=== PATIENT | male | born 1960 | race Caucasian/White ===

== ENCOUNTER 2016-09-11 09:34 | Inpatient (IN) ==
--- NOTE | 2016-09-11 09:38 | Emergency Department Note ---
Disposition Clinical Impression: Atrial fibrillation with rapid ventricular response, Chest pain Disposition: Admitted As Inpatient Chest Pain HPI - General Stated Complaint: Chest Pain Time Seen by Provider: 09/11/16 09:37 Source: patient, family Mode of arrival: ambulatory Limitations: no limitations Vital Signs Reviewed: Yes Nursing Notes Reviewed: Yes - History of Present Illness Pt complaint: chest pain Onset (ago): week(s) (2) Duration: intermittent Onset: during rest Pain Location: substernal Severity: mild Quality: tightness Improves with: nothing Worsens with: nothing Associated symptoms: Reports: dyspnea Treatments prior to arrival chest pain: none - Related Data Previous Rx's Medication Instructions Recorded traMADol [Ultram] 50 mg PO Q6HR #20 tablet 12/18/15 Allergies Allergy/AdvReac Type Severity Reaction Status Date / Time No Known Allergies Allergy Verified 12/18/15 15:33 All systems ED: reviewed and negative except as stated. Constitutional: Denies: fever, chills Cardiovascular: Reports: chest pain, palpitations Respiratory: Reports: cough Gastrointestinal: Denies: nausea Chest Pain PMH - Past Medical History Medical history: Reports: arthritis, CHF, hypertension Psychiatric history: Reports: no psych history - Social History Smoking Status: Current every day smoker Alcohol use: Reports: heavy Drug use: Reports: none Physical Exam - General Limitations: no limitations General appearance: alert, in no apparent distress - Head Head exam: atraumatic, normocephalic, normal inspection - Eye Eye exam: Present: normal appearance, PERRL, EOMI - Expanded Eye Exam Pupils: Left: reactive - ENT ENT exam: normal exam, normal oropharynx, mucous membranes moist - Expanded ENT Exam External ear exam: Present: normal external inspection Mouth exam: Present: normal external inspection Teeth exam: Present: normal inspection Throat exam: Present: normal inspection - Neck Neck exam: Present: normal inspection, full ROM, trachea midline - Chest Chest inspection: Present: normal inspection, symmetric chest wall rise - Respiratory Respiratory exam: Present: normal lung sounds bilaterally - Cardiovascular Cardiovascular exam: Present: tachycardia, irregular rhythm - Abdominal Exam Abdominal exam: Present: soft, Non-Tender. Absent: tenderness, distention, guarding, rebound, rigidity - Extremities Exam Extremities exam: Present: normal inspection, full ROM. Absent: tenderness, pedal edema - Expanded Upper Extremity Exam Shoulder exam: Present: normal inspection, full ROM Arm exam: Present: normal inspection, full ROM Elbow exam: Present: normal inspection, full ROM Forearm/Wrist exam: Present: normal inspection, full ROM Hand exam: Present: normal inspection, full ROM Vascular exam: Normal: capillary refill, radial pulse - Expanded Lower Extremity Exam Hip/Pelvis exam: Present: normal inspection, full ROM Upper leg exam: Present: normal inspection, full ROM Knee exam: Present: normal inspection, full ROM Lower leg exam: Present: normal inspection, full ROM Ankle exam: Present: normal inspection, full ROM Foot/toe exam: Present: normal inspection, full ROM Neurovascular/Tendon exam: Absent: motor deficit, sensory deficit, tendon deficit - Back Exam Back exam: Present: normal inspection, full ROM. Absent: tenderness - Neurological Exam Neurological exam: Present: alert, oriented X3 - Expanded Neurological Exam Patient oriented to: Present: person, place, time Coma Scale Eye Opening: Spontaneous Coma Scale Motor Response: Obeys Commands Coma Scale Verbal Response: Oriented Coma Scale Total: 15 - Psychiatric Psychiatric exam: Present: normal affect, normal mood - Skin Skin exam: Present: warm, dry, intact, normal color Course Vital Signs Temperature 97.5 F L 09/11/16 09:45 Pulse Rate 106 09/11/16 09:45 Respiratory Rate 18 09/11/16 09:45 Blood Pressure 125/108 09/11/16 09:45 O2 Sat by Pulse Oximetry 95 09/11/16 09:45 Temperature 97.5 F L 09/11/16 09:45 Pulse Rate 115 09/11/16 10:23 Respiratory Rate 20 09/11/16 10:23 Blood Pressure 126/96 09/11/16 10:23 O2 Sat by Pulse Oximetry 91 09/11/16 10:23 Oxygen Delivery Oxygen Delivery Room Air Chest Pain - Differential Diagnosis Likely: stable angina, unstable angina pectoris, atypical chest pain, st elevation myocardial infraction, chest pain - Medical Records Medical records reviewed: Yes I reviewed the patient's medical records. - Lab Data Lab results reviewed: Yes I reviewed the patient's lab results. Result diagrams: 09/11/16 09:45 09/11/16 09:45 Lab Results 09/11/16 09/11/16 09/11/16 Range/Units 09:45 09:45 09:45 WBC 5.2 (4.3-11.1) K/mcL RBC 4.92 (4.19-5.50) M/mcL Hgb 16.0 (12.9-16.9) g/dL Hct 46.7 (37.5-50.1) % MCV 94.9 (83.0-100.0) fL MCH 32.5 (28.0-33.3) pg MCHC 34.3 (31.6-35.5) g/dL RDW 13.8 (11.5-14.5) % Plt Count 138 L (140-400) K/mcL MPV 9.5 (9.4-12.4) fL Immature Gran % 0.2 (0-4) % Seg Neutrophils % 43.3 % Lymphocytes % 46.2 % Monocytes % 8.3 % Eosinophils % 1.2 % Basophils % 0.8 % Neutrophils # 2.3 (1.6-8.9) K/mcL Lymphocytes # 2.4 (0.6-4.6) K/mcL Monocytes # 0.4 (0.0-1.3) K/mcL Eosinophils # 0.1 (0.0-0.6) K/mcL Basophils # 0.0 (0.0-0.2) K/mcL PT 10.9 (9.4-12.1) Seconds INR 1.0 APTT 28.5 (26.0-36.0) Seconds Sodium 132 L (136-145) mEq/L Potassium 4.9 H (3.5-4.5) mEq/L Chloride 97 L (98-109) mEq/L Carbon Dioxide 22 (19-29) mEq/L BUN 8 (8-26) mg/dL Creatinine 0.82 (0.72-1.25) mg/dL Est GFR ( Amer) > 60 (> 60) Est GFR (Non-Af Amer) > 60 (> 60) BUN/Creatinine Ratio 10 (6-26) Glucose 87 (70-99) mg/dL Calculated Osmolality 272 L (280-300) Calcium 9.1 (8.6-10.8) mg/dL Troponin I (0-0.03) ng/mL 09/11/16 Range/Units 09:45 WBC (4.3-11.1) K/mcL RBC (4.19-5.50) M/mcL Hgb (12.9-16.9) g/dL Hct (37.5-50.1) % MCV (83.0-100.0) fL MCH (28.0-33.3) pg MCHC (31.6-35.5) g/dL RDW (11.5-14.5) % Plt Count (140-400) K/mcL MPV (9.4-12.4) fL Immature Gran % (0-4) % Seg Neutrophils % % Lymphocytes % % Monocytes % % Eosinophils % % Basophils % % Neutrophils # (1.6-8.9) K/mcL Lymphocytes # (0.6-4.6) K/mcL Monocytes # (0.0-1.3) K/mcL Eosinophils # (0.0-0.6) K/mcL Basophils # (0.0-0.2) K/mcL PT (9.4-12.1) Seconds INR APTT (26.0-36.0) Seconds Sodium (136-145) mEq/L Potassium (3.5-4.5) mEq/L Chloride (98-109) mEq/L Carbon Dioxide (19-29) mEq/L BUN (8-26) mg/dL Creatinine (0.72-1.25) mg/dL Est GFR ( Amer) (> 60) Est GFR (Non-Af Amer) (> 60) BUN/Creatinine Ratio (6-26) Glucose (70-99) mg/dL Calculated Osmolality (280-300) Calcium (8.6-10.8) mg/dL Troponin I 0.00 (0-0.03) ng/mL - Radiology Data Radiology results reviewed: Yes I reviewed the patient's radiology results. - EKG Data EKG attestation: Yes I reviewed and interpreted this EKG. Rate: tachycardia Rhythm: A.Fib [place]/QRS: normal Interpretation: nonspecific ST-T wave changes Critical Care Time Critical Care Time: Yes Total Critical Care Time: 35 Attestation: Critical care performed: Time is exclusive of separately billable procedures. Time includes: direct patient care, patient reassessment, coordination of patient care, interpretation of data (laboratory data, radiology data, and respiratory data), review of patient's medical records, medical consultation and documentation of patient care. Procedures included in critical care time: Procedures excluded from critical care time:
[2016-09-11 09:55] LABS: Basophils % 0.8 %; Eosinophils # 0.1 K/mcL (0.0-0.6); Eosinophils % 1.2 %; Hematocrit 46.7 % (37.5-50.1); Immature Granulocytes % 0.2 % (0-4); Lymphocytes # 2.4 K/mcL (0.6-4.6); Lymphocytes % 46.2 %; Mean Corpuscular HGB Conc 34.3 g/dL (31.6-35.5); Mean Corpuscular Hemoglobin 32.5 pg (28.0-33.3); Mean Corpuscular Volume 94.9 fL (83.0-100.0); Mean Platelet Volume 9.5 fL (9.4-12.4); Monocytes # 0.4 K/mcL (0.0-1.3); Monocytes % 8.3 %; Neutrophils # 2.3 K/mcL (1.6-8.9); Platelet Count 138 K/mcL (140-400); Red Blood Count 4.92 M/mcL (4.19-5.50); Red Cell Distribution Width 13.8 % (11.5-14.5); Segmented Neutrophils % 43.3 %
[2016-09-11] MEDS ORDERED: 0.9 % Sodium Chloride 500 ML IVC ONE (09:57)
[2016-09-11 10:03] LABS: Prothrombin Time 10.9 Seconds (9.4-12.1)
[2016-09-11 10:06] LABS: Activated Partial Thrombo Time 28.5 Seconds (26.0-36.0)
[2016-09-11 10:12] LABS: BUN/Creatinine Ratio 10 (6-26); Blood Urea Nitrogen 8 mg/dL (8-26); Calcium 9.1 mg/dL (8.6-10.8); Carbon Dioxide 22 mEq/L (19-29); Chloride 97 mEq/L (98-109); Glucose 87 mg/dL (70-99); Osmolality,Calculated 272 (280-300); Potassium 4.9 mEq/L (3.5-4.5); Sodium 132 mEq/L (136-145); eGFR For African Americans > 60 (> 60); eGFR For Non-African Americans > 60 (> 60)
[2016-09-11] MEDS ORDERED: Aspirin 81 MG TAB.CHEW PO ONE (10:24)
[2016-09-11] MEDS ORDERED: *HR* Enoxaparin 80 MG/0.8 ML SYRINGE SQ STA (10:24)
[2016-09-11] MEDS ORDERED: 0.9 % Sodium Chloride 500 ML ONE (10:31)
[2016-09-11] MEDS ORDERED: Calcium Gluconate 1,000 MG in D5% in Water 100 ML IVPB ONE (12:43)
[2016-09-11] MEDS ORDERED: Naloxone 0.4 MG/ML INJ IVP PRN (12:59)
[2016-09-11] MEDS ORDERED: *HR* LORazepam 2 MG/ML VIAL IVP PRN ×3 (13:03)
[2016-09-11] MEDS ORDERED: *HR* Promethazine 25 MG/ML VIAL IVP PRN (13:03)
--- NOTE | 2016-09-11 13:14 | Electrocardiograph Report ---
[place] [id number] Test Date: 2016-09-11 Pat Name: Denzel Thorpe Department: 102 Room: 2A12 Gender: M [employer] Developer: : 1960 Requested By: Moises Duenas Order Number: [id number] Reading MD: Denzel Marie MD Measurements Intervals [place] Rate: 118 P: HI: 0 QRS: 70 QRSD: 93 T: 67 QT: 314 QTc: 384 Interpretive Statements ATRIAL FIBRILLATION WITH RAPID VENTRICULAR RESPONSE Electronically Signed On 09-11-2016 13:12:32 EDT by Denzel Marie MD
[2016-09-11] MEDS ORDERED: Albuterol 2.5 MG/3 ML NEBULIZER IH PRN (13:18)
--- NOTE | 2016-09-11 13:36 | Internal Med History&Physical ---
Date of Encounter: 09/11/16 Time of Encounter: 13:32 Assessment and Plan (1) Atrial fibrillation with rapid ventricular response Current visit: Yes Status: Acute Patient presented with chest pain. EKG showed Afib with RVR, HR 118. Previous EKG on record from 11/2015 also shows Afib. Patient a poor historian and reports he moved recently and he's run out of most of his medications. 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 Cardizem drip to maintain HR < 100 for rate/rhythm control Weight based lovenox for anti-coagulation Obtain records from [place] and will restart patient on home regimen once records available. CT of head given uncontrolled and not anti-coagulated and with right hand weakness. (2) Chest pain Current visit: Yes Status: Acute Patient reports chest pain on and off for the last several days. EKG shows AFib with RVR, no ST elevations. Troponin negative at 0.00. Chest pain likely due to Afib, will rule out ACS. Continuous monitoring engineer serial troponins. Qualifiers: Chest pain type: precordial pain Qualified Code(s): R07.2 - Precordial pain (3) Wheeze Current visit: Yes Status: Acute Patient with diffuse wheezes bilaterally. He reports shortness of breath "no worse than usual". He is unaware of a COPD diagnosis, but given longstanding smoking history, it is likely. CXR shows no acute process. Budesonide/formotorol BID xopenex QID Prednisone 40mg Daily. (4) Smoker Current visit: Yes Status: Acute Discussed smoking cessation, patient not ready to quit. Smoking cessation education ordered. Nicotine patch. (5) Alcohol abuse Current visit: Yes Status: Acute Patient reports he drinks 48oz of beer daily. CIWA protocol ordered. SWK consulted. (6) DVT prophylaxis Current visit: Yes Status: Acute Up to chair BID anti-embolic stockings Weight based lovenox ordered for afib anticoagulation. Internal Medicine - H&P: HPI Chief complaint: chest pain Admitted From: Emergency Dept Plans for Post Hospital Care: Home History of present illness: Mr. Thorpe is a 56 year old male with hypertension, CHF, atrial fibrillation, arthritis presented to the emergency department today with complaints of chest pain. Patient reports the pain as been coming on and off for the last few days , describes it as, "just hurts", and is attributing it to stress. He recently moved from [place], and has run out of his medication. He is a poor historian and instructed us to get records from [place] for more of his history and medication list. He denies any headache, lightheadedness, palpitations, nausea , vomiting, abdominal pain, fever, chills, sweats. He does report occasional palpitations but, "no more than usual", as well as shortness of breath again " no more than usual". Evaluation in the emergency department included an EKG which showed he was in atrial fibrillation with RVR heart rate of 118. Chest x- ray showed no acute cardiopulmonary process. White blood cell count was normal at 5.2. He is mildly hyponatremic with sodium of 132. Troponin was negative at 0.00. He was started on a Cardizem drip for his atrial fibrillation and given weight-based Lovenox for anticoagulation. On exam, patient is alert and oriented, in no acute distress, denies any current chest pain. Lungs have bilateral wheezes and rhonchi. Patient reports he is a smoker and has a chronic cough. Heart has a regular rhythm, his rate controlled in the 90s. Past Med Surg Social Fam HX - Past Medical History Medical history: arthritis, atrial fibrillation, CHF, hypertension Psychiatric history: no psych history - Past Surgical History Surgical History: no surgical history - Social History Smoking Status: Current every day smoker Smokeless Tobacco Status: No Alcohol use: heavy Drug use: none - Family History Mother Living Status: Age at : 60 Father Living Status: Age at : 98 Internal Medicine - H&P: Meds Meloxicam [Mobic] 15 mg PO DAILY 09/11/16 [History] Allergies No Known Allergies Allergy (Verified 09/11/16 14:36) All Systems PM: A 10-system review of systems was performed and is negative for pertinent findings except as documented above in the HPI. - Constitutional Constitutional: no chills, no fever(s), no night sweats - EENT Eyes: no change in vision, no discharge, no pain, no photophobia Ears: no ear discharge, no ear pain, no tinnitus Nose, mouth and throat: no dysphagia, no nasal discharge, no neck pain, no sore throat - Cardiovascular Cardiovascular ROS IM: chest pain, dyspnea, palpitations, no diaphoresis, no lightheadedness, no syncope - Respiratory Respiratory: cough (chronic), dyspnea (no more than usual), no wheezing, no excessive phlegm production - Gastrointestinal Gastrointestinal: no abdominal pain, no diarrhea, no hematemesis, no hematochezia, no melena, no nausea, no vomiting - Musculoskeletal Musculoskeletal ROS IM: no numbness, no tingling - Integumentary Integumentary IM: no rash, no unusual bruising - Neurological Neurological ROS: no confusion, no convulsions, no focal weakness, no numbness, no tingling, no tremor(s) - Hematologic/Lymphatic Hematologic/Lymphatic: no easy bruising - Constitutional Vitals: Temp Pulse Resp BP Pulse Ox 98.3 F 106 14 128/86 95 09/11/16 12:06 09/11/16 12:06 09/11/16 12:06 09/11/16 12:06 09/11/16 12:06 General appearance: Present: A&O X 3, pleasant, no acute distress - Head Head exam: Present: atraumatic, normocephalic - Eye Eye exam: Present: PERRL, conjuntiva pink, sclera anicteric Pupils: Present: PERRL - Neck Neck exam general surgery: Present: supple, trachea midline. Absent: lymphadenopathy - Respiratory Respiratory exam: Present: rhonchi, wheezes. Absent: accessory muscle use, rales - Cardiovascular Cardiovascular exam: Present: irregular rhythm, +S1, +S2. Absent: diastolic murmur, gallop, rubs, systolic murmur - GI/Abdominal GI/Abdominal exam: Present: normal bowel sounds, soft, no peritoneal signs. Absent: distended, tenderness - Extremities Exam Extremities exam: Present: warm, radial pulses palpable and symetrical. Absent : calf tenderness, cyanotic, pedal edema - Neurological Exam Neurological exam: Present: CN II-XII intact, oriented X3, no focal deficits. Absent: pronater drift, facial droop, speech deficit - Skin Skin exam: Present: dry, intact Internal Med - H&P Results - Labs CBC & Chem 7: 09/11/16 09:45 09/11/16 16:00 Labs: All Lab Results (24 Hours) 09/11/16 09/11/16 09/11/16 Range/Units 09:45 09:45 09:45 WBC 5.2 (4.3-11.1) K/mcL RBC 4.92 (4.19-5.50) M/mcL Hgb 16.0 (12.9-16.9) g/dL Hct 46.7 (37.5-50.1) % MCV 94.9 (83.0-100.0) fL MCH 32.5 (28.0-33.3) pg MCHC 34.3 (31.6-35.5) g/dL RDW 13.8 (11.5-14.5) % Plt Count 138 L (140-400) K/mcL MPV 9.5 (9.4-12.4) fL Immature Gran % 0.2 (0-4) % Seg Neutrophils % 43.3 % Lymphocytes % 46.2 % Monocytes % 8.3 % Eosinophils % 1.2 % Basophils % 0.8 % Neutrophils # 2.3 (1.6-8.9) K/mcL Lymphocytes # 2.4 (0.6-4.6) K/mcL Monocytes # 0.4 (0.0-1.3) K/mcL Eosinophils # 0.1 (0.0-0.6) K/mcL Basophils # 0.0 (0.0-0.2) K/mcL PT 10.9 (9.4-12.1) Seconds INR 1.0 APTT 28.5 (26.0-36.0) Seconds Sodium 132 L (136-145) mEq/L Potassium 4.9 H (3.5-4.5) mEq/L Chloride 97 L (98-109) mEq/L Carbon Dioxide 22 (19-29) mEq/L BUN 8 (8-26) mg/dL Creatinine 0.82 (0.72-1.25) mg/dL Est GFR ( Amer) > 60 (> 60) Est GFR (Non-Af Amer) > 60 (> 60) BUN/Creatinine Ratio 10 (6-26) Glucose 87 (70-99) mg/dL Calculated Osmolality 272 L (280-300) Calcium 9.1 (8.6-10.8) mg/dL Troponin I (0-0.03) ng/mL 09/11/16 Range/Units 09:45 WBC (4.3-11.1) K/mcL RBC (4.19-5.50) M/mcL Hgb (12.9-16.9) g/dL Hct (37.5-50.1) % MCV (83.0-100.0) fL MCH (28.0-33.3) pg MCHC (31.6-35.5) g/dL RDW (11.5-14.5) % Plt Count (140-400) K/mcL MPV (9.4-12.4) fL Immature Gran % (0-4) % Seg Neutrophils % % Lymphocytes % % Monocytes % % Eosinophils % % Basophils % % Neutrophils # (1.6-8.9) K/mcL Lymphocytes # (0.6-4.6) K/mcL Monocytes # (0.0-1.3) K/mcL Eosinophils # (0.0-0.6) K/mcL Basophils # (0.0-0.2) K/mcL PT (9.4-12.1) Seconds INR APTT (26.0-36.0) Seconds Sodium (136-145) mEq/L Potassium (3.5-4.5) mEq/L Chloride (98-109) mEq/L Carbon Dioxide (19-29) mEq/L BUN (8-26) mg/dL Creatinine (0.72-1.25) mg/dL Est GFR ( Amer) (> 60) Est GFR (Non-Af Amer) (> 60) BUN/Creatinine Ratio (6-26) Glucose (70-99) mg/dL Calculated Osmolality (280-300) Calcium (8.6-10.8) mg/dL Troponin I 0.00 (0-0.03) ng/mL - Diagnostic Studies Chest x-ray Additional comments: Chest X-Ray 09/11/16 09:37 IMPRESSION: 1. No acute cardiopulmonary disease. 2. Stable right basilar pleural and parenchymal scarring. 3. Stable cardiomegaly. D/ / 09/11/2016 10:49:23 Salomon Mccarthy MD / fco Interpreting Provider: Salomon Mccarthy MD
--- NOTE | 2016-09-11 13:52 | Event Note ---
Date of Encounter: 09/11/16 Time of Encounter: 13:49 Patient seen and examined with nurse practitioner. Patient presents with man complaining of shortness of breath and chest pain. He is in AFib with rapid ventricular response. He is not compliant with any of his medications. He is not taking his rate control and or anticoagulants. He has moved from [place] and since then he has not followed with his PCP for the past few months. He has been started on Cardizem for rate control is on minimal dose of 5 mg per hour and systolic blood pressure is running in the 120s will continue. Gentle hydration. For dose Lovenox. We will get records from [facility]. Patient is also having acute bronchitis. He is a lifelong smoker does not know if he has COPD or not. We will give oral steroids and nebulizer treatments with Xopenex. He has right arm weakness which has been there for the past 2 months. Maybe shoulder pathology because of pain with range of motion versus CVA. He is a very poor historian. We will get CT scan of the head. She is also an alcoholic. We will keep on serial protocol with oral ativan. He is full code.
[2016-09-11] MEDS ORDERED: *HR* LORazepam 1 MG TABLET PO PRN ×3 (13:56→13:59)
[2016-09-11] MEDS: Nicotine 21 MG PATCH.TD24 TD SCH (14:35)
[2016-09-11] MEDS: predniSONE 20 MG TABLET PO SCH (14:40)
[2016-09-11] MEDS: Levalbuterol Neb 1.25 MG/3 ML IH SCH ×2 (15:13→20:43)
[2016-09-11 16:34] LABS: Magnesium 1.6 mg/dL (1.6-2.6)
[2016-09-11] MEDS ORDERED: Ipratropium/Albuterol Neb 3 ML IH SCH (17:00)
[2016-09-11] MEDS: Acetaminophen 325 MG TABLET PO PRN (19:45)
[2016-09-11] MEDS: Budesonide/Formoterol 160/4.5 MDI IH SCH (20:43)
[2016-09-11] MEDS: *HR* Enoxaparin 80 MG/0.8 ML SYRINGE SQ SCH (21:18)
[2016-09-12] MEDS: Levalbuterol Neb 1.25 MG/3 ML IH SCH ×2 (04:13→09:53)
[2016-09-12 04:46] LABS: Basophils % 0.1 %; Hematocrit 42.4 % (37.5-50.1); Immature Granulocytes % 0.4 % (0-4); Lymphocytes # 1.2 K/mcL (0.6-4.6); Lymphocytes % 17.6 %; Mean Corpuscular Hemoglobin 32.4 pg (28.0-33.3); Mean Corpuscular Volume 95.5 fL (83.0-100.0); Mean Platelet Volume 10.2 fL (9.4-12.4); Monocytes # 0.4 K/mcL (0.0-1.3); Monocytes % 6.5 %; Neutrophils # 5.1 K/mcL (1.6-8.9); Platelet Count 119 K/mcL (140-400); Red Blood Count 4.44 M/mcL (4.19-5.50); Red Cell Distribution Width 13.6 % (11.5-14.5); Segmented Neutrophils % 75.4 %
[2016-09-12 04:55] LABS: Hemoglobin 14.4 g/dL (12.9-16.9)
[2016-09-12 05:00] LABS: BUN/Creatinine Ratio 14 (6-26); Blood Urea Nitrogen 12 mg/dL (8-26); Carbon Dioxide 27 mEq/L (19-29); Chloride 100 mEq/L (98-109); Glucose 153 mg/dL (70-99); Osmolality,Calculated 279 (280-300); Potassium 4.3 mEq/L (3.5-4.5); Sodium 133 mEq/L (136-145); eGFR For African Americans > 60 (> 60); eGFR For Non-African Americans > 60 (> 60)
[2016-09-12] MEDS: *HR* Enoxaparin 80 MG/0.8 ML SYRINGE SQ SCH (08:07)
[2016-09-12] MEDS: predniSONE 20 MG TABLET PO SCH (08:07)
[2016-09-12] MEDS: Nicotine 21 MG PATCH.TD24 TD SCH (08:07)
--- NOTE | 2016-09-12 08:32 | Cardiology Consult Note ---
Date of Encounter: 09/12/16 Time of Encounter: 08:30 Assessment and Plan (1) Atrial fibrillation with rapid ventricular response Current Visit: Yes Status: Acute Per Cardiology: Hx of afib on ECG in 2016. Patient confirmed awareness to history of atrial fibrillation, of note however patient is a very poor historian. Recently ran out of meds. On IV Cardizem gtt. 2.5mg. Willl add Cardizem 30mg PO every 6 hrs. SBP 120's. Will attempt to wean off gtt. Mg & TSH ok. Regarding long-term AC, patient appears to have [id number] = 1 (HTN?). At this point recommend aspirin only for long-term anticoagulation due to frequent falls , heavy alcohol use, medical noncompliance. Patient verbalized understanding. No family present at bedside for further discussion. (2) Chest pain Current Visit: Yes Status: Acute Per Cardiology: Trops 0.00 x 3. CP in setting of afib RVR while off meds. Symptoms atypical suspect related to A. fib with RVR. Awaiting medical records from [place]. Can consider echocardiogram once better rate controlled if not recently completed at outside facility. Qualifiers: Chest pain type: precordial pain Qualified Code(s): R07.2 - Precordial pain (3) Alcohol abuse Current Visit: Yes Status: Acute Per Cardiology: Patient reports he drinks at least 48oz of beer daily. On CIWA protocol. Discussion w patient/family: The assessment and plan as outlined above was discussed with the patient who expressed understanding and agreement. All questions were answered. Thank you for involving us in the care of your patient. Please call with any questions. Has SW consult-- recent medical noncompliance, heavy ETOH use, recently moved to [facility], lives alone, illiterate. History of Present Illness Consult date: 09/12/16 Requesting physician: Gordon España Consult reason: Afib RVR Chief complaint: Chest Thumping History of present illness: Mr. Thorpe is a 56 year old male with a relevant past medical history of arthritis, atrial fibrillation, CHF, hypertension, alcohol abuse, nicotine abuse. Cardiology consult for chest pain and atrial fibrillation with rapid ventricular response. Patient reports he presented due to concerns of midsternal chest thumping sensations that started at home while in his yard watching his dog. He reports symptoms improved with sitting down. He denies any current symptoms. He does report shortness of breath at time of this event. 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 Patient aware that he is taking Lasix 20 mg by mouth daily and did not run out of that medication. However, unfortunately not aware of his other medications and reports has remount about a week and a half ago. He reports recent heart workup at [place] late last year. Patient unaware of what testing was completed. Patient does admit to past knowledge of history of atrial fibrillation. Denies awareness of taking any blood thinner. He denies any active bleeding or blood loss. He does report frequent falls and has fallen 4-5 times in the past 6 months. Patient admits to drinking at least 3 beers daily since hospital stay. He does admit to drinking at least a case per day prior to recent hospitalization. Patient could not provide specifics on volume or his length of alcohol use other than "I would drink whatsoever I couldn't get my hands on" and had been drinking since before age 19. He does admit to smoking about one half packs per day, again noncommittal on length of time. He denies any illicit drug use. He denies any awareness to past history of CAD or CVA. Patient reports illiteracy. Recently moved to the area and indicates lives next door to his brother. Past Med Surg Social Fam HX - Past Medical History Attestation: Yes The following information was validated with the patient. Source: patient, old records reviewed Medical history: arthritis, atrial fibrillation, CHF, hypertension Psychiatric history: no psych history - Past Surgical History Surgical History: no surgical history - Social History Smoking Status: Current every day smoker Smokeless Tobacco Status: No Alcohol use: heavy Drug use: none - Family History Mother Living Status: Age at : 60 Father Living Status: Age at : 98 Medications and Allergies Meloxicam [Mobic] 15 mg PO DAILY 09/11/16 [History] Allergies No Known Allergies Allergy (Verified 09/11/16 14:36) All Systems Review: A 10-system review of systems was performed and is negative for pertinent findings except as documented above in the HPI. - Cardiovascular Cardiovascular: as per HPI, chest pain at rest, dyspnea at rest, palpitations - Musculoskeletal Musculoskeletal: other (frequent falls) Physical Examination Vital Signs, Last 4 Hours Temp Pulse Resp BP Pulse Ox 09/12/16 08:22 92 09/12/16 07:33 98.2 F 79 16 125/82 92 General: Conversant, Other (Speech somewhat jumbled at times) HEENT: Atraumatic, Normocephaly Neck: No JVD Cardiac: No Murmur, Other (Irregularly irregular) Lungs: Normal Breath Sounds, No Wheeze, Rales, Rhonchi, Other (Slightly diminished basis) Neuro: Alert and responsive, No focal deficits noted, Other (Positive CHAPMAN 4) Abdomen: Soft, Non-Tender Skin: No rashes noted on visualized skin Musculoskeletal: No Chest Wall Tenderness Extremities: No Edema, Normal Pulses Results 09/12/16 04:21 09/12/16 04:21 Lab Results Laboratory Tests 09/11/16 09/11/16 09/11/16 09:45 09:45 16:00 INR 1.0 Magnesium Troponin I 0.00 0.00 09/11/16 09/11/16 16:00 22:04 INR Magnesium 1.6 Troponin I 0.00 Laboratory Tests 09/12/16 04:21 TSH 3.016 ITS Impressions Chest X-Ray 09/11/16 09:37 IMPRESSION: 1. No acute cardiopulmonary disease. 2. Stable right basilar pleural and parenchymal scarring. 3. Stable cardiomegaly. D/ / 09/11/2016 10:49:23 Salomon Mccarthy MD / fco Interpreting Provider: Salomon Mccarthy MD Head CT 09/11/16 14:30 IMPRESSION: No acute intracranial abnormality. D/ / 09/11/2016 15:52:34 Chelly Tian MD / [place] Interpreting Provider: Chelly Tian MD Active Medications Acetaminophen (Tylenol) 650 mg PO Q6HR PRN PRN Reason: Mild Pain (1-3) Stop: 03/13/17 13:00 Last Admin: 09/11/16 19:45 Dose: 650 mg Budesonide/Formoterol Fumarate (Symbicort) 2 puff IH BIDR [facility] Stop: 03/13/17 22:01 Last Admin: 09/11/16 20:43 Dose: 2 puff Docusate Sodium (Colace) 100 mg PO BID PRN PRN Reason: Constipation Stop: 03/13/17 13:00 Enoxaparin Sodium (Lovenox) 80 mg 1 mg/kg (80 mg) SQ Q12H LINDA PRN Reason: Protocol Stop: 03/13/17 22:01 Last Admin: 09/12/16 08:07 Dose: 80 mg Diltiazem HCl 125 mg/ Dextrose 125 mls @ 5 mls/hr IVC .Q24H LINDA; 5 MG/HR PRN Reason: Protocol Stop: 03/13/17 16:46 Last Titration: 09/12/16 08:05 Dose: 2.5 mg/hr, 2.5 mls/hr Levalbuterol HCl (Xopenex) 1.25 mg IH [id number] [facility] Stop: 03/13/17 16:01 Last Admin: 09/12/16 04:13 Dose: 1.25 mg Lorazepam (Ativan) 2 mg PO Q4H PRN PRN Reason: Alcohol Withdrawal Stop: 03/13/17 13:57 Lorazepam (Ativan) 1 mg PO Q1H PRN PRN Reason: Alcohol Withdrawal Stop: 03/13/17 13:59 Lorazepam (Ativan) 4 mg PO Q4HR PRN PRN Reason: Alcohol Withdrawal Stop: 03/13/17 14:00 Naloxone HCl (Narcan) 0.4 mg IVP Q2MIN PRN PRN Reason: Opioid Reversal Stop: 03/13/17 13:00 Nicotine (Nicoderm) 21 mg TD DAILY [facility] Stop: 03/13/17 13:16 Last Admin: 09/12/16 08:07 Dose: 21 mg Prednisone (Prednisone) 40 mg PO DAILY [facility] Stop: 03/13/17 14:01 Last Admin: 09/12/16 08:07 Dose: 40 mg Promethazine HCl (Phenergan) 12.5 mg IVP Q4HR PRN PRN Reason: Nausea And Vomiting Stop: 03/13/17 13:04 - Imaging and Cardiology Chest Xray: report reviewed - EKG Interpretation EKG results cardiology: personally reviewed (Atrial fibrillation with rapid ventricular response in the 110s), other (24-hour telemetry reviewed with average heart rate 86, atrial fibrillation, longest pause 2.3 seconds, currently A. fib on telemetry in the 100s) Consult Discharge Plan - Plan Referrals: NO,PCP [Primary Care Provider] -
[2016-09-12 09:18] LABS: Thyroid Stimulating Hormone 3.016 mcIU/mL (0.350-4.840)
[2016-09-12] MEDS: Budesonide/Formoterol 160/4.5 MDI IH SCH ×2 (09:53→19:40)
[2016-09-12] MEDS ORDERED: Levalbuterol Neb 1.25 MG/3 ML IH PRN (12:30)
[2016-09-12] MEDS: Folic Acid 1 MG TABLET PO SCH (12:47)
[2016-09-12] MEDS: Thiamine (B-1) 100 MG TABLET PO SCH (12:47)
--- NOTE | 2016-09-12 14:45 | Internal Med Progress Note ---
Date of Encounter: 09/12/16 Time of Encounter: 10:30 - Assessment and plan (1) Atrial fibrillation with rapid ventricular response Current Visit: Yes Status: Acute Assessment and plan: Patient with history of atrial fibrillation admitted with rapid ventricular response, initially on Cardizem drip. Plan is to transition to by mouth Cardizem, we will follow recommendations by cardiology. Patient with poor adherence to medical therapy, chronic alcoholic, thrombocytopenia and risk of falls, at this point recommendation would be to give only aspirin for CVA prophylaxis. Discussed with patient, he expressed understanding. Cardiology input highly appreciated. (2) Alcohol abuse Current Visit: Yes Status: Acute Assessment and plan: Continue with CIWA protocol. Continue monitoring. (3) DVT prophylaxis Current Visit: Yes Status: Acute Assessment and plan: Continue with heparin. (4) Smoker Current Visit: Yes Status: Acute - Subjective Interval history: Patient seen and examined in rounds. Patient denies chest pain, shortness of breath. He is a chronic alcoholic. - Constitutional Vitals: Temp Pulse Resp BP Pulse Ox 98.2 F 79 16 125/82 92 09/12/16 07:33 09/12/16 07:33 09/12/16 09:54 09/12/16 07:33 09/12/16 09:54 General appearance: Present: A&O X 3, pleasant, no acute distress - Head Head exam: Present: atraumatic, normocephalic - Eye Eye exam: Present: PERRL, conjuntiva pink, sclera anicteric Pupils: Present: PERRL - Neck Neck exam general surgery: Present: supple, trachea midline. Absent: lymphadenopathy - Respiratory Respiratory exam: Present: CTAB. Absent: accessory muscle use, rales, rhonchi, wheezes - Cardiovascular Cardiovascular exam: Present: RRR, +S1, +S2. Absent: diastolic murmur, gallop, rubs, systolic murmur - GI/Abdominal GI/Abdominal exam: Present: normal bowel sounds, soft, no peritoneal signs. Absent: distended, tenderness - Extremities Exam Extremities exam: Present: warm, radial pulses palpable and symetrical. Absent : calf tenderness, cyanotic, pedal edema - Neurological Exam Neurological exam: Present: CN II-XII intact, oriented X3, no focal deficits. Absent: pronater drift, facial droop, speech deficit - Skin Skin exam: Present: dry, intact Internal Medicine: Result - Labs CBC & Chem 7: 09/12/16 04:21 09/12/16 04:21 Labs: Short CBC 09/12/16 Range/Units 04:21 WBC 6.8 (4.3-11.1) K/mcL Hgb 14.4 D (12.9-16.9) g/dL Hct 42.4 (37.5-50.1) % Plt Count 119 L (140-400) K/mcL Neutrophils # 5.1 (1.6-8.9) K/mcL BMP 09/12/16 04:21 Sodium 133 L Potassium 4.3 Chloride 100 Carbon Dioxide 27 BUN 12 Creatinine 0.86 Glucose 153 H Calcium 9.0 Cardiac Enzymes 09/11/16 Range/Units 22:04 Troponin I 0.00 (0-0.03) ng/mL - ABG Interpretation ABG results: PT/INR, D-dimer PT 10.9 Seconds (9.4-12.1) 09/11/16 09:45 Consult Discharge Plan - Plan Referrals: NO,PCP [Primary Care Provider] -
[2016-09-12] MEDS: Diltiazem CD (24hr) 120 MG CAPSULE PO SCH (15:37)
[2016-09-12] MEDS: Magnesium Oxide 400 MG TABLET PO SCH (20:18)
[2016-09-13 03:55] LABS: Prothrombin Time 11.1 Seconds (9.4-12.1)
[2016-09-13] MEDS: *HR* Enoxaparin 40 MG/0.4 ML SYRINGE SQ SCH (04:58)
[2016-09-13 05:20] LABS: Basophils % 0.2 %; Eosinophils % 0.4 %; Hematocrit 39.7 % (37.5-50.1); Hemoglobin 13.4 g/dL (12.9-16.9); Immature Granulocytes % 0.6 % (0-4); Lymphocytes # 1.2 K/mcL (0.6-4.6); Lymphocytes % 22.1 %; Mean Corpuscular HGB Conc 33.8 g/dL (31.6-35.5); Mean Corpuscular Hemoglobin 32.8 pg (28.0-33.3); Mean Corpuscular Volume 97.3 fL (83.0-100.0); Mean Platelet Volume 10.2 fL (9.4-12.4); Monocytes # 0.3 K/mcL (0.0-1.3); Monocytes % 5.9 %; Neutrophils # 3.9 K/mcL (1.6-8.9); Platelet Count 103 K/mcL (140-400); Red Blood Count 4.08 M/mcL (4.19-5.50); Red Cell Distribution Width 14.1 % (11.5-14.5); Segmented Neutrophils % 70.8 %
[2016-09-13 05:30] LABS: BUN/Creatinine Ratio 15 (6-26); Blood Urea Nitrogen 13 mg/dL (8-26); Calcium 8.8 mg/dL (8.6-10.8); Carbon Dioxide 24 mEq/L (19-29); Chloride 101 mEq/L (98-109); Glucose 117 mg/dL (70-99); Osmolality,Calculated 279 (280-300); Potassium 4.6 mEq/L (3.5-4.5); Sodium 134 mEq/L (136-145); eGFR For African Americans > 60 (> 60); eGFR For Non-African Americans > 60 (> 60)
[2016-09-13] MEDS: Budesonide/Formoterol 160/4.5 MDI IH SCH ×2 (08:09→20:03)
[2016-09-13] MEDS: Magnesium Oxide 400 MG TABLET PO SCH ×2 (08:39→20:18)
[2016-09-13] MEDS: Nicotine 21 MG PATCH.TD24 TD SCH (08:39)
[2016-09-13] MEDS: Thiamine (B-1) 100 MG TABLET PO SCH (08:39)
[2016-09-13] MEDS: Aspirin Enteric Coated 81 MG Tablet PO SCH (08:39)
[2016-09-13] MEDS: Folic Acid 1 MG TABLET PO SCH (08:39)
[2016-09-13] MEDS: Diltiazem CD (24hr) 120 MG CAPSULE PO SCH (08:39)
[2016-09-13] MEDS ORDERED: Diltiazem CD (24hr) 120 MG CAPSULE PO ONE (09:02)
--- NOTE | 2016-09-13 09:05 | Cardiology Progress Note ---
Date of Encounter: 09/13/16 Time of Encounter: 09:00 Assessment and Plan (1) Atrial fibrillation with rapid ventricular response Current Visit: Yes Status: Acute Per Cardiology: Hx of afib on ECG in 2016. Patient confirmed awareness to history of atrial fibrillation, of note however patient is a very poor historian. Recently ran out of meds. Remains A. fib with average heart rate past 12 hours 99 and currently 90s to 100s on telemetry. Now on Cardizem CD 120 mg by mouth daily with most recent SBP 130's - 150's. Will increase Cardizem CD up to 240 mg by mouth daily. Mg & TSH ok. No medical records received from outside facility. Now will proceed with echo since better rate controlled. Regarding long-term AC, patient appears to have [id number] = 1 (HTN?). At this point recommend aspirin only for long-term anticoagulation due to frequent falls , heavy alcohol use, medical noncompliance. Patient verbalized understanding. No family present at bedside for further discussion. Previously discussed with Dr. Prasad whom agrees. (2) Chest pain Current Visit: Yes Status: Acute Per Cardiology: Trops 0.00 x 3. CP in setting of afib RVR while off meds. Symptoms atypical suspect related to A. fib with RVR. Awaiting medical records from [place]. Will check echo. CP free. Qualifiers: Chest pain type: precordial pain Qualified Code(s): R07.2 - Precordial pain (3) Alcohol abuse Current Visit: Yes Status: Acute Per Cardiology: Patient reports he drinks at least 48oz of beer daily. On CIWA protocol. Alcohol cessation strongly encouraged. Monitor closely while on aspirin. Discussion w patient/family: The assessment and plan as outlined above was discussed with the patient who expressed understanding and agreement. All questions were answered. Thank you for involving us in the care of your patient. Please call with any questions. Has SW consult-- recent medical noncompliance, heavy ETOH use, recently moved to area, lives alone, illiterate. Subjective Principal diagnosis: Afib RVR Interval history: Patient denies any chest pain, shortness of breath, palpitations. Denies any active bleeding or blood loss. Inquiry into potential discharge home today. Objective Vital Signs, Last 4 Hours Temp Pulse Resp BP Pulse Ox 09/13/16 08:09 16 137/68 95 09/13/16 08:07 97.8 F 92 20 137/68 92 General: Conversant, No Apparent Distress HEENT: Atraumatic, Normocephaly Cardiac: No Murmur, Other (Irregularly irregular) Lungs: Normal Breath Sounds, No Wheeze, Rales, Rhonchi Neuro: Alert and responsive, No focal deficits noted Extremities: No Edema Results 09/13/16 03:30 09/13/16 03:30 Lab Results Active Medications Acetaminophen (Tylenol) 650 mg PO Q6HR PRN PRN Reason: Mild Pain (1-3) Stop: 03/13/17 13:00 Last Admin: 09/11/16 19:45 Dose: 650 mg Aspirin (Aspirin Ec) 81 mg PO DAILY [facility] Stop: 03/15/17 09:01 Last Admin: 09/13/16 08:39 Dose: 81 mg Budesonide/Formoterol Fumarate (Symbicort) 2 puff IH BIDR [facility] Stop: 03/13/17 22:01 Last Admin: 09/13/16 08:09 Dose: 2 puff Diltiazem HCl (Cardizem Cd) 120 mg PO ONCE ONE Stop: 09/13/16 09:03 Diltiazem HCl (Cardizem Cd) 240 mg PO DAILY [facility] Stop: 03/16/17 09:01 Docusate Sodium (Colace) 100 mg PO BID PRN PRN Reason: Constipation Stop: 03/13/17 13:00 Enoxaparin Sodium (Lovenox) 40 mg SQ 0600 LINDA PRN Reason: Protocol Stop: 03/15/17 06:01 Last Admin: 09/13/16 04:58 Dose: 40 mg Folic Acid (Folic Acid) 1 mg PO DAILY [facility] Stop: 03/14/17 12:30 Last Admin: 09/13/16 08:39 Dose: 1 mg Levalbuterol HCl (Xopenex) 1.25 mg IH [id number] PRN PRN Reason: Shortness Of Breath/Wheezing Stop: 03/13/17 16:01 Lorazepam (Ativan) 2 mg PO Q4H PRN PRN Reason: Alcohol Withdrawal Stop: 03/13/17 13:57 Lorazepam (Ativan) 1 mg PO Q1H PRN PRN Reason: Alcohol Withdrawal Stop: 03/13/17 13:59 Lorazepam (Ativan) 4 mg PO Q4HR PRN PRN Reason: Alcohol Withdrawal Stop: 03/13/17 14:00 Magnesium Oxide (Mag-Ox) 400 mg PO BID LINDA PRN Reason: Protocol Stop: 03/14/17 21:01 Last Admin: 09/13/16 08:39 Dose: 400 mg Naloxone HCl (Narcan) 0.4 mg IVP Q2MIN PRN PRN Reason: Opioid Reversal Stop: 03/13/17 13:00 Nicotine (Nicoderm) 21 mg TD DAILY [facility] Stop: 03/13/17 13:16 Last Admin: 09/13/16 08:39 Dose: 21 mg Thiamine HCl (Vitamin B-1) 100 mg PO DAILY [facility] Stop: 03/14/17 12:31 Last Admin: 09/13/16 08:39 Dose: 100 mg - Imaging and Cardiology Echo: pending - EKG Interpretation EKG results cardiology: other (Telemetry reviewed with average heart rate past 12 hours 99, remains atrial fibrillation, currently A. fib in the 90s to 100s.) Consult Discharge Plan - Plan Referrals: NO,PCP [Primary Care Provider] -
--- NOTE | 2016-09-13 14:31 | Internal Med Progress Note ---
Date of Encounter: 09/13/16 Time of Encounter: 11:00 - Assessment and plan (1) Atrial fibrillation with rapid ventricular response Current Visit: Yes Status: Acute Assessment and plan: Patient with history of atrial fibrillation admitted with rapid ventricular response, initially on Cardizem drip. on po Cardizem, we will follow recommendations by cardiology. Patient with poor adherence to medical therapy, chronic alcoholic, thrombocytopenia and risk of falls, at this point recommendation would be to give only aspirin for CVA prophylaxis. Discussed with patient, he expressed understanding. Pending echo, to evaluate systolic function. As per records he has a history of a severe systolic dysfunction. Cardiology input highly appreciated. (2) Alcohol abuse Current Visit: Yes Status: Acute (3) DVT prophylaxis Current Visit: Yes Status: Acute (4) Smoker Current Visit: Yes Status: Acute - Subjective Interval history: Patient seen and examined in rounds. Patient denies chest pain, shortness of breath. He is a chronic alcoholic. - Constitutional Vitals: Temp Pulse Resp BP Pulse Ox 97.8 F 92 16 137/68 95 09/13/16 08:07 09/13/16 08:07 09/13/16 08:09 09/13/16 08:09 09/13/16 08:09 General appearance: Present: A&O X 3, pleasant, no acute distress - Head Head exam: Present: atraumatic, normocephalic - Eye Eye exam: Present: PERRL, conjuntiva pink, sclera anicteric Pupils: Present: PERRL - Neck Neck exam general surgery: Present: supple, trachea midline. Absent: lymphadenopathy - Respiratory Respiratory exam: Present: CTAB. Absent: accessory muscle use, rales, rhonchi, wheezes - Cardiovascular Cardiovascular exam: Present: RRR, +S1, +S2. Absent: diastolic murmur, gallop, rubs, systolic murmur - GI/Abdominal GI/Abdominal exam: Present: normal bowel sounds, soft, no peritoneal signs. Absent: distended, tenderness - Extremities Exam Extremities exam: Present: warm, radial pulses palpable and symetrical. Absent : calf tenderness, cyanotic, pedal edema - Neurological Exam Neurological exam: Present: CN II-XII intact, oriented X3, no focal deficits. Absent: pronater drift, facial droop, speech deficit - Skin Skin exam: Present: dry, intact Internal Medicine: Result - Labs CBC & Chem 7: 09/13/16 03:30 09/13/16 03:30 Labs: Short CBC 09/13/16 Range/Units 03:30 WBC 5.4 (4.3-11.1) K/mcL Hgb 13.4 (12.9-16.9) g/dL Hct 39.7 (37.5-50.1) % Plt Count 103 L (140-400) K/mcL Neutrophils # 3.9 (1.6-8.9) K/mcL BMP 09/13/16 03:30 Sodium 134 L Potassium 4.6 H Chloride 101 Carbon Dioxide 24 BUN 13 Creatinine 0.86 Glucose 117 H Calcium 8.8 - ABG Interpretation ABG results: PT/INR, D-dimer PT 11.1 Seconds (9.4-12.1) 09/13/16 03:30 Consult Discharge Plan - Plan Referrals: NO,PCP [Primary Care Provider] -
--- NOTE | 2016-09-13 15:39 | Event Note ---
Date of Encounter: 09/13/16 Time of Encounter: 15:40 - Cardiology Event Note Echo still pending. We'll discontinue Cardizem and switch to Toprol-XL 100 mg by mouth daily since has previous history of known systolic CHF. Additionally, this does increase his [id number] risk, but unfortunately patient still remains poor candidate for long-term anticoagulation other than aspirin. I did have discussion with Dr. Marie regarding records at this juncture no plans for left heart catheterization. Again will await current echo for further recommendations and will monitor overnight for rate control and monitor with conversion to a different medication.
[2016-09-13] MEDS: Acetaminophen 325 MG TABLET PO PRN (20:18)
[2016-09-14 04:16] LABS: Eosinophils % 0.9 %; Mean Corpuscular Volume 98.6 fL (83.0-100.0)
[2016-09-14 04:17] LABS: Basophils % 0.7 %; Hematocrit 41.6 % (37.5-50.1); Hemoglobin 13.5 g/dL (12.9-16.9); Immature Granulocytes % 0.2 % (0-4); Immature Platelets 6.5 % (1.1-6.1); Lymphocytes # 1.5 K/mcL (0.6-4.6); Mean Corpuscular HGB Conc 32.5 g/dL (31.6-35.5); Mean Platelet Volume 9.9 fL (9.4-12.4); Monocytes # 0.3 K/mcL (0.0-1.3); Monocytes % 6.5 %; Platelet Count 111 K/mcL (140-400); Red Blood Count 4.22 M/mcL (4.19-5.50); Red Cell Distribution Width 14.3 % (11.5-14.5); Segmented Neutrophils % 57.7 %
[2016-09-14 04:21] LABS: Prothrombin Time 10.6 Seconds (9.4-12.1)
[2016-09-14 04:23] LABS: Neutrophils # 2.5 K/mcL (1.6-8.9)
[2016-09-14 04:32] LABS: BUN/Creatinine Ratio 15 (6-26); Blood Urea Nitrogen 15 mg/dL (8-26); Carbon Dioxide 26 mEq/L (19-29); Chloride 101 mEq/L (98-109); Glucose 91 mg/dL (70-99); Osmolality,Calculated 280 (280-300); Potassium 5.1 mEq/L (3.5-4.5); Sodium 135 mEq/L (136-145); eGFR For African Americans > 60 (> 60); eGFR For Non-African Americans > 60 (> 60)
[2016-09-14] MEDS: *HR* Enoxaparin 40 MG/0.4 ML SYRINGE SQ SCH (06:05)
[2016-09-14] MEDS: Budesonide/Formoterol 160/4.5 MDI IH SCH (07:49)
[2016-09-14] MEDS: Folic Acid 1 MG TABLET PO SCH (08:24)
[2016-09-14] MEDS: Nicotine 21 MG PATCH.TD24 TD SCH (08:24)
[2016-09-14] MEDS: Aspirin Enteric Coated 81 MG Tablet PO SCH (08:24)
[2016-09-14] MEDS: Thiamine (B-1) 100 MG TABLET PO SCH (08:24)
[2016-09-14] MEDS ORDERED: Diltiazem CD (24hr) 120 MG CAPSULE PO SCH (09:00)
[2016-09-14] MEDS ORDERED: Metoprolol XL (24 HR) Succ 50 MG TAB.ER.24H PO SCH (09:00)
--- NOTE | 2016-09-14 09:04 | ECHO - Doppler Report ---
Echocardiogram Name: Denzel Thorpe Date of Study: 09/13/2016 Date: 1960 Ht: 68.0 in Medical Record#: [id number] Age: 56 Wt: 188.0 lb Gender: Male BSA: 1.99 Order #: [id number] Location: [facility] Room #: 2A12 Reading Physician: Amber Santiago DO Memorial Marker Designer: Rachel Singh Ordering Physician: Jamie Hopper CNP Primary Physician: None Indications: AFIB with RVR Impressions: LVEF 40%. There is mild global hypokinesis. Indeterminate left venticular diastoic function Normal right ventricular size and function. Mild-moderate tricuspid regurgitation. Mild pulmonary hypertension. Left Ventricular Wall Motion: Rest Echo Findings The apex, apical inferior, mid inferior, basal inferior, apical anterior, mid anterior, basal anterior, apical septal, mid inferior septal, basal inferior septal, apical lateral, mid anterior lateral, basal anterior lateral, mid anterior septal, mid inferior lateral, basal anterior septal and basal inferior lateral [place] were hypokinetic. Findings: Study Quality * Technically adequate exam. ECG Findings * Atrial fibrillation. Left Ventricle * LVEF 40%. Aorta * Not well visualized. Left Atrium * Mildly dilated left atrium. Mitral Valve * Normal mitral valve structure. * No mitral stenosis. * Trace mitral regurgitation. Aortic Valve * No aortic regurgitation. * Aortic valve not well visualized. * No aortic stenosis. Tricuspid Valve * Mild-moderate tricuspid regurgitation. * Normal tricuspid valve structure. * Estimated RA pressure is 8 mmHg. * Estimated RVSP is 41 mmHg. * Mild pulmonary hypertension. Right Atrium * Normal right atrial size. Pulmonic Valve * Pulmonic valve is not well visualized. * No pulmonic stenosis. * No pulmonic regurgitation. Pulmonary Artery * Pulmonary artery not well visualized. Interatrial Septum * No evidence of PFO by color Doppler. Pericardium * There is no pericardial effusion present. IVC * The IVC is dilated. * > 50% respiratory change Right Ventricle * Normal right ventricular structure and function. Normal Lat S Cornelius. History Hypertension History of Smoking Years 40 Packs 1 Measurements: BP: 137/ 68 2D Normal Values RVIDd: 3.70 cm <2.7 cm IVSd: 1.00 cm 0.6 - 1.0 cm LVIDd: 5.60 cm 3.7 - 5.6 cm LVPWd: 1.00 cm 0.6 - 1.1 cm LVIDs: 4.30 cm 1.5 - 3.6 cm AO: 2.30 cm < 4.0 cm LA: 4.80 cm 2.0 - 4.0cm %FS: 23.20 cm >25 % LA volume: 80 Mitral Valve Peak E:1.14 m/sec Peak E' Lat Cornelius:11.9 cm/s Peak E' Med Cornelius:9.65 cm/s E/E' Lat Ratio:9.6 E/E' Med Ratio:11.8 Tricuspid Valve TV Regurg Peak Grad: 33.00mmHg TV Regurg Peak Cornelius: 2.86m/sec Updated by Amber Santiago on 09/14/2016 8:59:08 AM electronically signed on 09/14/2016 9:00:12 AM with status of Final Wall Motion Uribe: 1=Normal, 2=Hypokinesis, 3=Akinesis, 4=Dyskinesis, 5=Aneurysmal, 6=Hyperkinetic, X=Not Visualized (Blank)=Missing
[2016-09-14 10:58] VITALS: BP 134/83
--- NOTE | 2016-09-14 13:47 | Cardiology Progress Note ---
Date of Encounter: 09/14/16 Time of Encounter: 13:41 Assessment and Plan (1) Atrial fibrillation with rapid ventricular response Current Visit: Yes Status: Acute Per Cardiology: Hx of afib on ECG in 2015. Patient confirmed awareness to history of atrial fibrillation, of note however patient is a very poor historian. Recently ran out of meds. Remains A. fib with average heart rate past 12 hours 87 and currently 80-90's on telemetry. Now on Toprol XL 100 mg daily. Cardizem stopped due to history of cardiomyopathy. TTE completed. Shows EF 40%. Mild to moderate tricuspid regurgitation. EF 35-40% in August 2012 on echo completed at [facility]. Regarding long-term AC, patient appears to have [id number] = 1 (HTN?). At this point recommend aspirin only for long-term anticoagulation due to frequent falls , heavy alcohol use, medical noncompliance. Outpatient follow-up with [facility] recommended 2 weeks. Cardiology will sign off. Please call with questions. (2) Chest pain Current Visit: Yes Status: Acute Per Cardiology: Trops 0.00 x 3. CP in setting of afib RVR while off meds. Symptoms atypical suspect related to A. fib with RVR. Reported history of cardiomyopathy in the past with EF as low as 10%. TTE completed this stay shows EF 40%. No further cardiac testing at this time. He denies recurrent chest pain. Qualifiers: Chest pain type: precordial pain Qualified Code(s): R07.2 - Precordial pain Discussion w patient/family: The assessment and plan as outlined above was discussed with the patient and/or family members who expressed understanding and agreement. All questions were answered. Thank you for involving us in the care of your patient. Please call with any questions. Subjective Principal diagnosis: Afib RVR Objective Vital Signs, Last 4 Hours Temp Pulse Resp BP Pulse Ox 09/14/16 10:58 98.6 F 83 20 134/83 95 Results 09/14/16 03:50 09/14/16 03:50 Lab Results 09/14/16 09/14/16 09/14/16 03:50 03:50 03:50 WBC 4.4 Hgb 13.5 Hct 41.6 Plt Count 111 L INR 1.0 Sodium 135 L Potassium 5.1 H Chloride 101 Carbon Dioxide 26 BUN 15 Creatinine 0.97 Glucose 91 Calcium 9.0 - VTE Documentation of Mechanical Device: Graduated compression elastic hosiery Consult Discharge Plan - Plan Referrals: NO,PCP [Primary Care Provider] -
--- NOTE | 2016-09-14 13:51 | Discharge Summary ---
Date of Encounter: 09/14/16 Time of Encounter: 13:49 - Discharge Diagnosis (1) Atrial fibrillation with rapid ventricular response Priority: Primary Status: Acute (2) Alcohol abuse Priority: Secondary Status: Acute (3) DVT prophylaxis Priority: Secondary Status: Acute (4) Smoker Priority: Secondary Status: Acute - Discharge Medications Prescriptions: Aspirin Enteric Coated [Aspirin EC] 81 mg PO DAILY #30 tablet. Folic Acid 1 mg PO DAILY 30 Days Metoprolol XL (24 HR) Succ [Toprol Xl] 100 mg PO DAILY 30 Days Thiamine (B-1) [Vitamin B-1] 100 mg PO DAILY 30 Days Home Medications: Aspirin Enteric Coated [Aspirin EC] 81 mg PO DAILY #30 tablet. 09/14/16 [Rx] Folic Acid 1 mg PO DAILY 30 Days 09/14/16 [Rx] Metoprolol XL (24 HR) Succ [Toprol Xl] 100 mg PO DAILY 30 Days 09/14/16 [Rx] Thiamine (B-1) [Vitamin B-1] 100 mg PO DAILY 30 Days 09/14/16 [Rx] Allergies/Adverse Reactions: Allergies No Known Allergies Allergy (Verified 09/11/16 14:36) Procedures/tests Complete & Pending: Procedures Performed prior 72 hours Category Date Time Status EV echocardiogram Routine Y 09/13/16 09:03 Completed Date of admission: 09/11/16 16:05 Primary care physician: PCP NO Consults: 09/12/16 08:02 Consult to Cardiology [CONS] Routine Comment: Consulting Provider: Cardiology Yin Reason for Consult: a fib rvr on cardizem drip, h/o etoh Call Completed: No Discharging clinician: Gordon España Anticipated date of discharge: 09/14/16 - Patient Status Disposition: Home, Self-Care Condition: Fair Functional capacity at discharge: independent ambulation Overall status at discharge: patient is back to baseline - Discharge Instructions Follow Up With: NO,PCP [Primary Care Provider] - Forms: ED Satisfaction Letter Additional Instructions: cardiolgy follow up with AF and systolic CHF. - Diet and Activity Activity: increase activity as tolerated Diet: low salt diet Interval History: Mr. Thorpe is a 56 year old male with hypertension, CHF, atrial fibrillation, arthritis presented to the emergency department today with complaints of chest pain. Patient reports the pain as been coming on and off for the last few days , describes it as, "just hurts", and is attributing it to stress. He recently moved from [place], and has run out of his medication. He is a poor historian and instructed us to get records from [place] for more of his history and medication list. He denies any headache, lightheadedness, palpitations, nausea , vomiting, abdominal pain, fever, chills, sweats. He does report occasional palpitations but, "no more than usual", as well as shortness of breath again " no more than usual". Evaluation in the emergency department included an EKG which showed he was in atrial fibrillation with RVR heart rate of 118. Chest x- ray showed no acute cardiopulmonary process. White blood cell count was normal at 5.2. He is mildly hyponatremic with sodium of 132. Troponin was negative at 0.00. He was started on a Cardizem drip for his atrial fibrillation and given weight-based Lovenox for anticoagulation. On exam, patient is alert and oriented, in no acute distress, denies any current chest pain. Lungs have bilateral wheezes and rhonchi. Patient reports he is a smoker and has a chronic cough. Heart has a regular rhythm, his rate controlled in the 90s. Hospital course: Mr. Thorpe is a 56 year old male admitted due to chest pain, negative trops. Patient with history of atrial fibrillation admitted with rapid ventricular response, initially on Cardizem drip. on po Cardizem afterwards, which was transitioned to po metoprolol due to history of systolic CHF. Echo revealed an EF of40%. improved from 10% from prior records. Patient with poor adherence to medical therapy, chronic alcoholic, thrombocytopenia and risk of falls, at this point recommendation would be to give only aspirin for CVA prophylaxis. Will discharge him on po asa and metoprolol. Discussed with patient, he expressed understanding. - Time Spent with Patient Total time spent providing and/or coordinating discharge services: - Constitutional Vitals: Temp Pulse Resp BP Pulse Ox 98.6 F 83 20 134/83 95 09/14/16 10:58 09/14/16 10:58 09/14/16 10:58 09/14/16 10:58 09/14/16 10:58 General appearance: Present: A&O X 3, pleasant, no acute distress - VTE Documentation of Mechanical Device: Graduated compression elastic hosiery
== END 2016-09-14 15:35 | disposition home or self-care (01) | DRG 309 ==
LOC: 2ANU 09:34 → EMEROO 09:34 → 2ANU 11:49
PROVIDERS: ADMIT Hospitalist; ATTEND Internal Medicine

== ENCOUNTER 2016-09-30 13:44 | Inpatient (IN) ==
[2016-09-30] MEDS ORDERED: Naloxone 0.4 MG/ML INJ IVP PRN (17:38)
[2016-09-30] MEDS ORDERED: *HR* LORazepam 2 MG/ML VIAL IVP PRN ×3 (17:46)
--- NOTE | 2016-09-30 17:53 | Event Note ---
Date of Encounter: 09/30/16 Time of Encounter: 17:51 Patient seen and examined with nurse practitioner. Agree with assessment and plan. Atrial fibrillation with rapid ventricular response and acute congestive heart failure due to diastolic dysfunction. He is on low-dose Cardizem drip. IV Lasix. He denies any chest pain. Mentioned that he had an angiogram before showed no occlusive disease according to him. He is full code.
--- NOTE | 2016-09-30 18:02 | Internal Med History&Physical ---
Date of Encounter: 09/30/16 Time of Encounter: 17:59 Assessment and Plan (1) Acute on chronic diastolic (congestive) heart failure Current visit: Yes Status: Acute Patient with reported shortness of breath and lower extremity swelling. echo last month showed LVEF of 40% with mild global hypokinesis, indeterminate left ventricular diastolic function and mild pulmonary hypertension. Lasix 40mg IVP BID daily weights strict I/O cardiac diet with 1.5L fluid restriction. (2) Atrial fibrillation with rapid ventricular response Current visit: No Status: Acute Patient with afib and RVR. Reports he "took his pills" this today. cardizem drip, titrate to HR < 90 continue home dose of metoprolol Anticoagulated with only aspirin due to thrombocytopenia, medical non- compliance. Continue aspirin. (3) Smoker Current visit: No Status: Acute Patient smokes 1-1.5PPD, smoking cessation education ordered. Nicotine patch. (4) Alcohol abuse Current visit: No Status: Acute Patient drinks a 6 pack of beer daily. [facility] protocol for alcohol withdrawal. social work consult. (5) DVT prophylaxis Current visit: No Status: Acute anti-embolic stockings. Patient with thrombocytopenia, with Plt of 86. Will give heparin BID. Internal Medicine - H&P: HPI Chief complaint: leg swelling Admitted From: Hospital to Hospital Transfer Plans for Post Hospital Care: Home History of present illness: Mr. Thorpe is a 56 year old male with hypertension, CHF, atrial fibrillation, arthritis who was transferred from [place] emergency department today with complaints of shortness of breath and increased bilateral lower extremity edema. Patient reports he has noticed his leg swelling lately and points to his legs when asked why he came in. He denies feeling short of breath right now. Denies any lightheadedness dizziness, chest pain, palpitations, numbness or tingling, nausea, vomiting. Patient does report a chronic cough. Evaluation of the [facility] emergency department included an EKG which showed atrial fibrillation and RVR. Chest x-ray showed stable cardiomegaly, no acute cardiopulmonary process. He is thrombocytopenic with platelet count of 86. BNP was elevated to 486 up from previous of 346. On exam, patient was drowsy but arousable. Heart had an irregular rhythm. Lungs had diffuse wheezes and crackles. Bilateral lower extremities have +3 pitting edema Past Med Surg Social Fam HX - Past Medical History Medical history: arthritis, atrial fibrillation, CHF, hypertension Psychiatric history: no psych history - Past Surgical History Surgical History: no surgical history - Social History Smoking Status: Current every day smoker Packs per day: 1 Smokeless Tobacco Status: No Alcohol use: heavy Drug use: none - Family History Mother Living Status: Father Living Status: Internal Medicine - H&P: Meds Aspirin Enteric Coated [Aspirin EC] 81 mg PO DAILY #30 tablet. 09/14/16 [Rx] Folic Acid 1 mg PO DAILY 30 Days 09/14/16 [Rx] Metoprolol XL (24 HR) Succ [Toprol Xl] 100 mg PO DAILY 30 Days 09/14/16 [Rx] Thiamine (B-1) [Vitamin B-1] 100 mg PO DAILY 30 Days 09/14/16 [Rx] Allergies No Known Allergies Allergy (Verified 09/11/16 14:36) All Systems PM: A 10-system review of systems was performed and is negative for pertinent findings except as documented above in the HPI. - Constitutional Constitutional: no chills, no fever(s), no night sweats - EENT Eyes: no change in vision, no discharge, no pain, no photophobia Ears: no ear discharge, no ear pain, no tinnitus Nose, mouth and throat: no dysphagia, no nasal discharge, no neck pain, no sore throat - Cardiovascular Cardiovascular ROS IM: dyspnea on exertion, edema, no chest pain, no diaphoresis , no dyspnea, no lightheadedness, no palpitations, no syncope - Respiratory Respiratory: dyspnea on exertion, wheezing, no cough, no dyspnea, no excessive phlegm production - Gastrointestinal Gastrointestinal: no abdominal pain, no diarrhea, no hematemesis, no hematochezia, no melena, no nausea, no vomiting - Musculoskeletal Musculoskeletal ROS IM: no numbness, no tingling - Integumentary Integumentary IM: no rash, no unusual bruising - Neurological Neurological ROS: no confusion, no convulsions, no focal weakness, no numbness, no tingling, no tremor(s) - Hematologic/Lymphatic Hematologic/Lymphatic: no easy bruising - Constitutional Vitals: Temp Pulse Resp BP Pulse Ox 98.3 F 91 20 144/93 95 09/30/16 15:36 09/30/16 17:19 09/30/16 15:36 09/30/16 17:19 09/30/16 15:36 General appearance: Present: A&O X 3, pleasant, no acute distress - Head Head exam: Present: atraumatic, normocephalic - Eye Eye exam: Present: PERRL, conjuntiva pink, sclera anicteric Pupils: Present: PERRL - Neck Neck exam general surgery: Present: supple, trachea midline. Absent: lymphadenopathy - Respiratory Respiratory exam: Present: rales, wheezes. Absent: accessory muscle use, rhonchi - Cardiovascular Cardiovascular exam: Present: irregular rhythm, +S1, +S2, tachycardia. Absent: diastolic murmur, gallop, rubs, systolic murmur - GI/Abdominal GI/Abdominal exam: Present: normal bowel sounds, soft, no peritoneal signs. Absent: distended, tenderness - Extremities Exam Extremities exam: Present: pedal edema (+3 BLE edema), warm, radial pulses palpable and symetrical. Absent: calf tenderness, cyanotic - Neurological Exam Neurological exam: Present: CN II-XII intact, oriented X3, no focal deficits. Absent: pronater drift, facial droop, speech deficit - Skin Skin exam: Present: dry, intact Internal Med - H&P Results - Labs CBC & Chem 7: 09/30/16 18:17 Labs: Labs from [facility]: Hgb 12.4 Hct 37.8 Wbc 4.6 Plt 86 Na 139 K 4.7 Cl 109 Co2 19 Bun 9 Cr 0.98 glu 129 BNP 486
[2016-09-30] MEDS: Nicotine 21 MG PATCH.TD24 TD SCH (18:04)
[2016-09-30 18:44] LABS: Magnesium 1.8 mg/dL (1.6-2.6); Potassium 4.7 mEq/L (3.5-4.5)
[2016-09-30] MEDS ORDERED: 0.9 % Sodium Chloride 250 ML ONE (19:47)
[2016-09-30] MEDS: Acetaminophen 325 MG TABLET PO PRN (19:51)
[2016-09-30] MEDS ORDERED: Furosemide 40 MG/4 ML VIAL IVP SCH (21:00)
[2016-10-01] MEDS ORDERED: *HR* Heparin 5,000 UNIT/ML VIAL SQ SCH
[2016-10-01 04:36] LABS: Basophils % 0.7 %
[2016-10-01 04:38] LABS: Eosinophils # 0.1 K/mcL (0.0-0.6); Eosinophils % 3.2 %; Hemoglobin 13.7 g/dL (12.9-16.9); Immature Granulocytes % 0.2 % (0-4); Lymphocytes # 1.5 K/mcL (0.6-4.6); Mean Corpuscular HGB Conc 32.6 g/dL (31.6-35.5); Mean Corpuscular Hemoglobin 32.4 pg (28.0-33.3); Mean Corpuscular Volume 99.3 fL (83.0-100.0); Mean Platelet Volume 10.1 fL (9.4-12.4); Monocytes # 0.4 K/mcL (0.0-1.3); Monocytes % 9.1 %; Platelet Count 103 K/mcL (140-400); Red Blood Count 4.23 M/mcL (4.19-5.50); Segmented Neutrophils % 49.8 %
[2016-10-01 04:46] LABS: BUN/Creatinine Ratio 9 (6-26); Blood Urea Nitrogen 9 mg/dL (8-26); Carbon Dioxide 28 mEq/L (19-29); Chloride 100 mEq/L (98-109); Glucose 84 mg/dL (70-99); Osmolality,Calculated 278 (280-300); Potassium 4.6 mEq/L (3.5-4.5); Sodium 135 mEq/L (136-145); eGFR For African Americans > 60 (> 60); eGFR For Non-African Americans > 60 (> 60)
[2016-10-01] MEDS: *HR* Heparin 5,000 UNIT/ML VIAL SQ SCH ×2 (05:13→17:08)
[2016-10-01] MEDS ORDERED: Ipratropium/Albuterol Neb 3 ML IH PRN (08:53)
[2016-10-01] MEDS ORDERED: Metoprolol XL (24 HR) Succ 50 MG TAB.ER.24H PO SCH (09:00)
[2016-10-01] MEDS: Thiamine (B-1) 100 MG TABLET PO SCH (10:12)
[2016-10-01] MEDS: Aspirin Enteric Coated 81 MG Tablet PO SCH (10:12)
[2016-10-01] MEDS: Vitamin B Complex/Vit C/Vit E 1 EACH TABLET PO SCH (10:12)
[2016-10-01] MEDS: Folic Acid 1 MG TABLET PO SCH (10:12)
[2016-10-01] MEDS: Nicotine 21 MG PATCH.TD24 TD SCH (10:13)
[2016-10-01] MEDS: Furosemide 40 MG/4 ML VIAL IVP SCH ×2 (10:21→17:08)
--- NOTE | 2016-10-01 10:22 | Internal Med Progress Note ---
Date of Encounter: 10/01/16 Time of Encounter: 10:12 - Subjective Interval history: Patient seen and examined at bedside. Resting in bed, reports of feeling better since admission. Patient noted to not have taken or filled any of his home medication in over a year. He is AAO x 3 and states he didn't need any medications until now due to which he refused to take his home meds. He is an every day smoker, smoking 1.5-2ppd. Not ready to quit at this time. Currently rate controlled, will d/c Cardizem gtt Assessment and Plan (1) Acute on chronic diastolic (congestive) heart failure Current visit: Yes Status: Acute 2D echo from August showed LVEF of 40% with mild global hypokinesis. Indeterminate left ventricular diastolic function. Normal RV size and function, mild-moderate TR, mild pulmonary HTN will continue IV diuretics monitor I/Os, daily weights fluid restriction diet O2 supplementation as needed Medication compliance advised Patient may also have undiagnosed COPD given smoking history contributing to his respiratory distress. Will administer duonebs prn sob/wheezing (2) Atrial fibrillation with rapid ventricular response Current visit: No Status: Acute Rate currently controlled on cardizem gtt titrate off cardizem gtt and start Metoprolol 12.5mg PO BID and Cardizem 30mg PO q6h continue tele monitoring patient has not been taking any medications prior to his hospitalization Not on anticoagulation due to history of thrombocytopenia and med noncompliance continue ASA for CVA ppx (3) Smoker Current visit: No Status: Acute Smoking cessation counseling provided Patient is not ready to quit at this time nicotine supplementation provided (4) Alcohol abuse Current visit: No Status: Acute History of drinking 6 cans of beer daily will continue CIWA monitoring alcohol cessation counseling provided will closely monitor for withdrawals social work consultation requested (5) DVT prophylaxis Current visit: No Status: Acute anti-embolic stockings. Heparin SQ closely monitor PlT count - Constitutional Vitals: Temp Pulse Resp BP Pulse Ox 97.3 F L 88 18 142/87 94 10/01/16 07:06 10/01/16 07:06 10/01/16 07:06 10/01/16 07:06 10/01/16 07:06 General appearance: Present: A&O X 3, no acute distress, obese - Head Head exam: Present: atraumatic, normocephalic - Eye Eye exam: Present: normal appearance, conjuntiva pink, sclera anicteric - Respiratory Respiratory exam: Absent: respiratory distress Additional comments: bibasilar crackles - Cardiovascular Cardiovascular exam: Present: irregular rhythm, +S1, +S2 - GI/Abdominal GI/Abdominal exam: Present: normal bowel sounds, soft, no peritoneal signs. Absent: distended, tenderness - Extremities Exam Extremities exam: Present: pedal edema (bilateral LE 2+pitting edema), warm, radial pulses palpable and symetrical. Absent: calf tenderness - Neurological Exam Neurological exam: Present: alert, oriented X3 - Psychiatric Psychiatric exam: Present: normal affect, normal mood Internal Medicine: Result - Labs CBC & Chem 7: 10/01/16 04:14 10/01/16 04:14 Labs: Short CBC 10/01/16 Range/Units 04:14 WBC 4.1 L (4.3-11.1) K/mcL Hgb 13.7 (12.9-16.9) g/dL Hct 42.0 (37.5-50.1) % Plt Count 103 L (140-400) K/mcL Neutrophils # 2.0 (1.6-8.9) K/mcL BMP 09/30/16 10/01/16 18:17 04:14 Sodium 135 L Potassium 4.7 H 4.6 H Chloride 100 Carbon Dioxide 28 BUN 9 Creatinine 0.95 Glucose 84 Calcium 9.0 Cardiac Enzymes 09/30/16 Range/Units 18:17 Troponin I 0.01 (0-0.03) ng/mL Consult Discharge Plan - Plan Referrals: NO,PCP [Primary Care Provider] -
--- NOTE | 2016-10-01 16:35 | Electrocardiograph Report ---
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
[2016-10-01] MEDS: Acetaminophen 325 MG TABLET PO PRN (17:16)
[2016-10-02 04:39] LABS: Basophils % 0.6 %
[2016-10-02 04:43] LABS: Eosinophils # 0.1 K/mcL (0.0-0.6); Eosinophils % 2.9 %; Hematocrit 40.3 % (37.5-50.1); Hemoglobin 13.7 g/dL (12.9-16.9); Immature Platelets 6.3 % (1.1-6.1); Lymphocytes # 1.3 K/mcL (0.6-4.6); Lymphocytes % 38.3 %; Mean Corpuscular Hemoglobin 33.1 pg (28.0-33.3); Mean Corpuscular Volume 97.3 fL (83.0-100.0); Mean Platelet Volume 10.8 fL (9.4-12.4); Monocytes # 0.4 K/mcL (0.0-1.3); Monocytes % 10.7 %; Neutrophils # 1.7 K/mcL (1.6-8.9); Red Blood Count 4.14 M/mcL (4.19-5.50); Red Cell Distribution Width 13.9 % (11.5-14.5); Segmented Neutrophils % 47.5 %
[2016-10-02 04:48] LABS: BUN/Creatinine Ratio 12 (6-26); Blood Urea Nitrogen 12 mg/dL (8-26); Calcium 9.4 mg/dL (8.6-10.8); Carbon Dioxide 32 mEq/L (19-29); Chloride 97 mEq/L (98-109); Glucose 91 mg/dL (70-99); Magnesium 1.7 mg/dL (1.6-2.6); Osmolality,Calculated 279 (280-300); Phosphorous 3.8 mg/dL (2.3-4.7); Potassium 4.2 mEq/L (3.5-4.5); Sodium 135 mEq/L (136-145); eGFR For African Americans > 60 (> 60); eGFR For Non-African Americans > 60 (> 60)
[2016-10-02 05:15] LABS: Platelet Count 96 K/mcL (140-400)
[2016-10-02] MEDS: *HR* Heparin 5,000 UNIT/ML VIAL SQ SCH (05:16)
[2016-10-02] MEDS: Thiamine (B-1) 100 MG TABLET PO SCH (07:39)
[2016-10-02] MEDS: Vitamin B Complex/Vit C/Vit E 1 EACH TABLET PO SCH (07:39)
[2016-10-02] MEDS: Aspirin Enteric Coated 81 MG Tablet PO SCH (07:39)
[2016-10-02] MEDS: Furosemide 40 MG/4 ML VIAL IVP SCH (07:39)
[2016-10-02] MEDS: Folic Acid 1 MG TABLET PO SCH (07:39)
[2016-10-02] MEDS: Nicotine 21 MG PATCH.TD24 TD SCH (07:51)
--- NOTE | 2016-10-02 08:46 | Discharge Summary ---
Date of Encounter: 10/02/16 Time of Encounter: 08:43 - Discharge Diagnosis (1) Congestive heart failure Priority: Primary Status: Acute Comments: Acute on chronic combined congestive heart failure with cardiomyopathy. EF 40% with global hypokinesis Qualifiers: Congestive heart failure type: combined Congestive heart failure chronicity : acute on chronic Qualified Code(s): I50.43 - Acute on chronic combined systolic (congestive) and diastolic (congestive) heart failure (2) Atrial fibrillation with rapid ventricular response Priority: Secondary Status: Acute (3) Smoker Priority: Secondary Status: Acute (4) Alcohol abuse Priority: Secondary Status: Acute (5) COPD (chronic obstructive pulmonary disease) Priority: Secondary Status: Suspected Qualifiers: COPD type: unspecified COPD Qualified Code(s): J44.9 - Chronic obstructive pulmonary disease, unspecified - Discharge Medications Prescriptions: Albuterol Sulfate [Albuterol Inhaler] 1 - 2 puff IH Q4HR PRN #1 inhaler PRN Reason: Wheezing Aspirin Enteric Coated [Aspirin EC] 81 mg PO DAILY #30 tablet. Folic Acid 1 mg PO DAILY #30 tablet Furosemide [Lasix] 40 mg PO BID #60 tablet Lisinopril [Zestril] 5 mg PO DAILY #30 tablet Metoprolol XL (24 HR) Succ [Toprol Xl] 100 mg PO DAILY #60 tab.er.24h Thiamine (B-1) [Vitamin B-1] 100 mg PO DAILY #30 tablet Home Medications: Albuterol Sulfate [Albuterol Inhaler] 1 - 2 puff IH Q4HR PRN #1 inhaler [Rx] Aspirin Enteric Coated [Aspirin EC] 81 mg PO DAILY #30 tablet. 10/02/16 [Rx] Folic Acid 1 mg PO DAILY #30 tablet 10/02/16 [Rx] Furosemide [Lasix] 40 mg PO BID #60 tablet 10/02/16 [Rx] Lisinopril [Zestril] 5 mg PO DAILY #30 tablet 10/02/16 [Rx] Metoprolol XL (24 HR) Succ [Toprol Xl] 100 mg PO DAILY #60 tab.er.24h 10/02/16 [ Rx] Thiamine (B-1) [Vitamin B-1] 100 mg PO DAILY #30 tablet 10/02/16 [Rx] Allergies/Adverse Reactions: Allergies No Known Allergies Allergy (Verified 09/11/16 14:36) Procedures/tests Complete & Pending: Procedures Performed prior 72 hours Category Date Time Status ECG 12 lead ECG [ECG] Routine Y 09/30/16 17:17 Completed Date of admission: 09/30/16 17:38 Primary care physician: PCP NO Consults: 09/30/16 17:46 Consult to Dairy Lab Technician [CONS] Routine Reason for SW Consult: drinks 6pack daily Discharging clinician: Yi Dawkins Anticipated date of discharge: 10/02/16 - Patient Status Disposition: Home, Self-Care Condition: Fair Functional capacity at discharge: independent ambulation Overall status at discharge: patient is progressing back to baseline - Discharge Instructions Instructions: Heart Failure (DC), Atrial Fibrillation (DC) Follow Up With: Ricarda Poole COAL TRAM DRIVER [Advanced Practice Nurse] - 10/08/16 9:00 am (Please follow up as schedule... This is the address [address] [place] [address]) Additional Instructions: Follow up with cardiology in 1 week for CHF and A. fib Follow up with pulmonology in 1-2 weeks for possible COPD Please arrange for follow-up with primary care provider as outpatient as early as possible - Diet and Activity Activity: increase activity as tolerated Diet: low fat, low cholesterol, low salt diet, other (Fluid restriction to 1.5 L per day) Hospital course: Mr. Thorpe is a 56 year old male patient who was admitted here with acute on chronic congestive heart failure, A. fib with RVR. He was started on treatment for this with IV Cardizem as a drip and after his heart rate has improved and he has been transitioned to oral Cardizem. Cardiology did not recommend changing over from Cardizem to metoprolol due to his cardiomyopathy and so will be placed back on Toprol XL 100 mg daily. Patient is not a candidate for anticoagulation due to thrombocytopenia and noncompliance with medications. For his heart failure, he was treated with Lasix with good improvement in his symptoms and good urine output. He will be discharged on oral Lasix and is advised to follow up with cardiology. He also has a history of chronic alcohol and tobacco abuse. He has been counseled about cessation. Given his chronic smoking history, he may have underlying COPD. I will refer him to pulmonology for further evaluation. - Time Spent with Patient Total time spent providing and/or coordinating discharge services: Greater than 30 minutes (40 min) - Constitutional Vitals: Temp Pulse Resp BP Pulse Ox 97.9 F 102 18 160/107 93 10/02/16 07:45 10/02/16 07:45 10/02/16 07:45 10/02/16 07:45 10/02/16 07:45 General appearance: Present: A&O X 3, no acute distress, obese - Neck Neck exam general surgery: Present: supple, trachea midline. Absent: lymphadenopathy - Respiratory Respiratory exam: Present: prolonged expiratory phase, rhonchi, wheezes. Absent : accessory muscle use, rales - Cardiovascular Cardiovascular exam: Present: irregular rhythm, +S1, +S2. Absent: diastolic murmur, gallop, rubs, systolic murmur - GI/Abdominal GI/Abdominal exam: Present: normal bowel sounds, soft, no peritoneal signs. Absent: distended, tenderness - Extremities Exam Extremities exam: Present: warm, radial pulses palpable and symetrical. Absent : calf tenderness, cyanotic, pedal edema - Skin Skin exam: Present: dry, intact - Attending Attestation This document has been at least partially created by [employer] recognition technology by Dr. Dawkins. Errors in grammar, wording or other phrases may exist. If errors are found after the documentation is signed, they will be addressed individually in the addendum section of this document when appropriate.
[2016-10-02] MEDS ORDERED: Metoprolol XL (24 HR) Succ 50 MG TAB.ER.24H PO SCH (09:00)
[2016-10-02] MEDS ORDERED: Diltiazem CD (24hr) 120 MG CAPSULE PO SCH (09:00)
[2016-10-02 09:34] VITALS: BP 122/75
[2016-10-03 15:27] LABS: CK-BB (CK isoenzymes) 0 % (0-0); CK-MB (CK isoenzymes) 0 % (0-4); CK-MM (CK-isoenzymes) 100 % (96-100)
[2016-10-04 14:52] LABS: CK Total (Ck Isoenzymes) 115 U/L (20-200)
== END 2016-10-02 11:47 | disposition home or self-care (01) | DRG 293 ==
LOC: 2ANU → SUATTDRO 17:38
PROVIDERS: ADMIT Hospitalist; ATTEND Internal Medicine